=== PATIENT | female | born 1950 | race Caucasian/White ===

== ENCOUNTER 2018-06-11 19:59 | Inpatient (IN) ==
[2018-06-11] MEDS ORDERED: Fluticasone Propionate Nasal 50 MCG/SPRAY BOTTLE NS PRN (21:19)
[2018-06-11] MEDS ORDERED: Acetaminophen 325 MG TABLET PO PRN (21:23)
[2018-06-11] MEDS ORDERED: Mag Hydrox/Al Hydrox/Simeth 30 ML UDC PO PRN (21:24)
[2018-06-11] MEDS: *HR* OxyCODONE Immed Rel 5 MG TABLET PO PRN (23:43)
[2018-06-12] MEDS: *HR* OxyCODONE Immed Rel 5 MG TABLET PO PRN ×3 (04:45→18:20)
[2018-06-12 05:53] LABS: Basophils % 0.7 %; Eosinophils # 0.3 K/mcL (0.0-0.6); Eosinophils % 4.6 %; Hematocrit 30.3 % (35.3-44.9); Hemoglobin 10.2 g/dL (11.5-15.4); Immature Granulocytes % 0.3 % (0-4); Lymphocytes # 1.1 K/mcL (0.6-4.6); Lymphocytes % 18.5 %; Mean Corpuscular HGB Conc 33.7 g/dL (31.6-35.5); Mean Corpuscular Volume 89.1 fL (83.0-100.0); Mean Platelet Volume 12.3 fL (9.4-12.4); Monocytes # 0.6 K/mcL (0.0-1.3); Monocytes % 10.4 %; Platelet Count 162 K/mcL (140-400); Red Cell Distribution Width 13.1 % (11.5-14.5); Segmented Neutrophils % 65.5 %
[2018-06-12 05:57] LABS: INR 1.2; Prothrombin Time 13.5 Seconds (9.4-12.1)
[2018-06-12 06:00] LABS: Activated Partial Thrombo Time 28.3 Seconds (26.0-36.0)
[2018-06-12 06:08] LABS: BUN/Creatinine Ratio 15 (6-26); Blood Urea Nitrogen 9 mg/dL (8-23); Calcium 8.4 mg/dL (8.6-10.3); Carbon Dioxide 27 mEq/L (23-29); Chloride 100 mEq/L (98-107); Glucose 110 mg/dL (70-105); Osmolality,Calculated 277 (280-300); Potassium 3.5 mEq/L (3.5-5.1); Sodium 134 mEq/L (136-145); eGFR For Non-African Americans > 60 (> 60)
[2018-06-12] MEDS: Cyanocobalamin (B-12) 1,000 MCG TABLET PO SCH (09:53)
[2018-06-12] MEDS: Aspirin Enteric Coated 325 MG Tablet PO SCH ×2 (09:54→20:54)
--- NOTE | 2018-06-12 11:44 | Internal Med History&Physical ---
Addendum entered and electronically signed by Julian Myers MD 06/12/18 13:21: I have personally performed a face to face evaluation on this patient. I have r eviewed and agree with the care plan. History and Exam by me shows: Patient is without complaint. Therapy notes that she is doing very well. She has not had a bowel movement since surgery and as this is now 5 days, I suggested that she use a laxative as needed. We reviewed past medical history, surgeries include cataracts, right carpal tunnel, right wrist release (de Quervain's?), Right shoulder spur removal, right knee arthroscopy, laparoscopic cholecystectomy, VIDAL with removal of all of her ovaries except one quarter because of scar tissue,and of course her knee replacement. Medications were reviewed. She has no drug allergies. 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 Her was a moth proofer and later a entry level truck driver who about 9 years ago. She has never been a smoker or drinker and uses no street drugs. She lives with her mother but on a part-time basis. She is planning not to work for at least 3 months. Patient has no complaint of chest discomfort, dyspnea, orthopnea, breathing problems, palpitations, nausea or vomiting, constipation or diarrhea, other changes in bowel habits, heartburn, difficulty with urination, kidney problems or kidney stones, fevers chills or sweats, rash or itching, seizures, headache or lightheadedness, heat or cold intolerance, blood problems or anemia, or other new complaints, except as mentioned above. Review of systems is otherwise negative. Examination: (Except as mentioned above): General: In no apparent distress, alert and oriented 3. Head: Atraumatic and normocephalic. Eyes: Extraocular muscles are intact, pupils equal round and reactive to light and accommodation. Sclerae anicteric. Ears: External ears are normal to inspection and hearing is grossly normal. Nose: Patent without lesion noted. Mouth: No intraoral lesions seen. Dentition is unremarkable. Neck: Supple with trachea midline. There is no thyromegaly or adenopathy and carotids are 2+ without bruit heard. Respiratory: No use of accessory muscles. Lungs are clear throughout. Normal airflow. Cardiovascular: Regular rate and rhythm without murmur appreciated. Abdomen: Bowel sounds are normal. No hepatosplenomegaly masses or tenderness. Obese and therefore difficult to palpate deeply. Extremities: No cyanosis or clubbing but right lower extremity is edematous, consistent with postoperative situation. Her right knee is wrapped and is dry and intact. Neurological: A and O 3. Cranial nerves II through XII are intact. No focal deficits and no abnormal movements or postures. Skin: Warm and non-diaphoretic with no lesions noted. Breasts, pelvic and rectal: Not examined. We will plan therapies but she is already walking over 75 feet twice a day. Because of this, we will keep her on her surgeons DVT plan of aspirin twice a day, for DVT prophylaxis. Original Note: Date of Encounter: 06/12/18 Time of Encounter: 11:41 Assessment and Plan (1) Status post total right knee replacement Current visit: Yes Status: Acute PT and OT to eval and treat. Will follow progress. Pain controlled with o xycodone. Hemoglobin stable at 10.2. Follow up with Dr. Light as scheduled. Internal Medicine - H&P: HPI Admitted From: Hospital to Hospital Transfer Plans for Post Hospital Care: Home History of present illness: Ms. Ashby is a 67 year old female transferred here from [facility] status post right total knee replacement for PT and OT. Surgery was performed by Dr. Light on . Patient states pain is controlled with oxycodone. Participating well with therapy. Ambulating with Walker. Absent home alone. Last bowel movement was 3 days ago. Patient states this can be normal for her. Denies any discomfort. Denies fever, chills, nausea, vomiting or diarrhea. Maintaining appetite and hydration. 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 restless legs Psychiatric history: anxiety - Past Surgical History Surgical History: cataract, other Additional surgical history: right shoulder. hysterectomy. right knee. ctr - Social History Smoking Status: Never smoker Smokeless Tobacco Status: No Alcohol use: none Drug use: none - Family History Mother Adopted: No Age: 95 Living Status: Still Living Hx Family Cardiac Disorders: Yes (HTN) Hx Family Musculoskeletal Disorders: Yes (arthritis) Internal Medicine - H&P: Meds Cyanocobalamin (Vitamin B-12) [Vitamin B-12] 500 mcg SL DAILY 08/18/16 [History] Fluticasone Propionate Nasal [Flonase] 2 spr NS DAILY PRN 08/18/16 [History] [place]-3/Dha/Epa/Fish Oil [Fish Oil 1,000 mg Softgel] 1 each PO 2XW 08/18/16 [History] Aspirin Enteric Coated [Aspirin EC] 325 mg PO BID #20 tablet. 06/08/18 [Rx] OxyCODONE Immed Rel [Roxicodone 5 MG] 5 mg PO Q6HR PRN 5 Days #20 tablet 06/08/18 [Rx] Allergy/AdvReac Type Severity Reaction Status Date / Time No Known Allergies Allergy Verified 06/09/18 12:09 All Systems PM: A 10-system review of systems was performed and is negative for pertinent findings except as documented above in the HPI. - Constitutional Constitutional: no chills, no fever(s), no night sweats - EENT Eyes: no change in vision, no discharge, no pain, no photophobia Ears: no ear discharge, no ear pain, no tinnitus Nose, mouth and throat: no dysphagia, no nasal discharge, no neck pain, no sore throat - Cardiovascular Cardiovascular ROS IM: no chest pain, no diaphoresis, no dyspnea, no lightheadedness, no palpitations, no syncope - Respiratory Respiratory: no cough, no dyspnea, no wheezing, no excessive phlegm production - Gastrointestinal Gastrointestinal: no abdominal pain, no diarrhea, no hematemesis, no hematochezia, no melena, no nausea, no vomiting - Genitourinary Genitourinary: no change in urinary stream, no dysuria, no flank pain, no hematuria - Musculoskeletal Musculoskeletal ROS IM: no numbness, no tingling - Integumentary Integumentary IM: no rash, no unusual bruising - Neurological Neurological ROS: no confusion, no convulsions, no focal weakness, no numbness, no tingling, no tremor(s) - Hematologic/Lymphatic Hematologic/Lymphatic: no easy bruising - Constitutional Vitals: Temp Pulse Resp BP Pulse Ox 98.8 F 88 15 118/68 93 06/12/18 07:56 06/12/18 07:56 06/12/18 07:56 06/12/18 07:56 06/12/18 07:56 General appearance: Present: cooperative, A&O X 3, no acute distress, answers questions appropriately - Head Head exam: Present: atraumatic, normocephalic - Eye Eye exam: Present: PERRL, conjuntiva pink, sclera anicteric Pupils: Present: PERRL - Neck Neck exam general surgery: Present: supple, trachea midline. Absent: lymphad enopathy - Respiratory Respiratory exam: Present: CTAB. Absent: accessory muscle use, rales, rhonchi, wheezes - Cardiovascular Cardiovascular exam: Present: RRR, +S1, +S2. Absent: diastolic murmur, gallop, rubs, systolic murmur - GI/Abdominal GI/Abdominal exam: Present: normal bowel sounds, soft, no peritoneal signs. Absent: distended, tenderness - Extremities Exam Extremities exam: Present: warm, radial pulses palpable and symmetrical. Absent: calf tenderness, cyanotic, pedal edema - Incison Comments: right knee incision, drsg dry and intact. no drainage. surrounding edema present. - Neurological Exam Neurological exam: Present: CN II-XII intact, oriented X3, no focal deficits. Absent: pronater drift, facial droop, speech deficit - Skin Skin exam: Present: dry, intact Internal Med - H&P Results - Labs CBC & Chem 7: 06/12/18 05:40 06/12/18 05:40 Labs: Short CBC 06/12/18 Range/Units 05:40 WBC 6.2 (4.3-11.1) K/mcL Hgb 10.2 L (11.5-15.4) g/dL Hct 30.3 L (35.3-44.9) % Plt Count 162 (140-400) K/mcL Neutrophils # 4.0 (1.6-8.9) K/mcL BMP 06/12/18 05:40 Sodium 134 L Potassium 3.5 Chloride 100 Carbon Dioxide 27 BUN 9 Creatinine 0.61 Glucose 110 H Calcium 8.4 L
[2018-06-13] MEDS: *HR* OxyCODONE Immed Rel 5 MG TABLET PO PRN ×4 (00:45→21:01)
[2018-06-13] MEDS: Aspirin Enteric Coated 325 MG Tablet PO SCH ×2 (09:30→21:01)
[2018-06-13] MEDS: Cyanocobalamin (B-12) 1,000 MCG TABLET PO SCH (09:31)
--- NOTE | 2018-06-13 13:55 | Internal Med Progress Note ---
Addendum entered and electronically signed by Julian Myers MD 06/14/18 11:44: I have personally performed a face to face evaluation on this patient. I have r eviewed and agree with the care plan. History and Exam by me shows: The patient was evaluated by me yesterday but the note was not complete. This documentation is being completed today for that reason. Discussed care with other providers and/or nursing. Patient has no complaint of chest discomfort, dyspnea, orthopnea, palpitations, nausea or vomiting, constipation or diarrhea, other changes in bowel habits, difficulty with urination, rash or itching, or other new complaints, except as mentioned above. Review of systems is otherwise negative. Examination: (Except as mentioned above): General: In no apparent distress. Alert and oriented 3. Nondiaphoretic. Head: Atraumatic and normocephalic. Respiratory: No use of accessory muscles. Lungs are clear throughout. Normal airflow. Cardiovascular: Regular rate and rhythm without murmur appreciated. Abdomen: Bowel sounds are normal. No hepatosplenomegaly mass or tenderness appreciated. Obese and therefore difficult to palpate deeply. Extremities: No cyanosis clubbing or change in edema. Skin: Warm and non-diaphoretic with no new lesions noted. Original Note: Date of Encounter: 06/13/18 Time of Encounter: 13:53 - Assessment and plan (1) Status post total right knee replacement Current Visit: Yes Status: Acute Assessment and plan: Participating well with therapy. Continue PT and OT. Oxycodone controlling pain. Follow up with ortho as scheduled. - Time Spent With Patient less than 15 minutes - Subjective Interval history: Participating well with therapy. Ambulating in hallway with Walker. Maintaining appetite and hydration. States pain is controlled with oxycodone. Denies fever, chills, nausea vomiting or diarrhea. - Constitutional Vitals: Temp Pulse Resp BP Pulse Ox 98.3 F 88 18 115/69 96 06/13/18 06:58 06/13/18 06:58 06/13/18 06:58 06/13/18 06:58 06/13/18 06:58 General appearance: Present: cooperative, A&O X 3, no acute distress, answers qu estions appropriately - Head Head exam: Present: atraumatic, normocephalic - Eye Eye exam: Present: PERRL, conjuntiva pink, sclera anicteric Pupils: Present: PERRL - Neck Neck exam general surgery: Present: supple, trachea midline. Absent: lymphadenopathy - Respiratory Respiratory exam: Present: CTAB. Absent: accessory muscle use, rales, rhonchi, wheezes - Cardiovascular Cardiovascular exam: Present: RRR, +S1, +S2. Absent: diastolic murmur, gallop, rubs, systolic murmur - GI/Abdominal GI/Abdominal exam: Present: normal bowel sounds, soft, no peritoneal signs. Absent: distended, tenderness - Extremities Exam Extremities exam: Present: warm, radial pulses palpable and symmetrical. Absent: calf tenderness, cyanotic, pedal edema - Incison Comments: Right knee incision dressing dry and intact. No drainage. Surrounding edema - Neurological Exam Neurological exam: Present: CN II-XII intact, oriented X3, no focal deficits. Absent: pronater drift, facial droop, speech deficit - Skin Skin exam: Present: dry, intact Internal Medicine: Result - Labs CBC & Chem 7: 06/12/18 05:40 06/12/18 05:40 - ABG Interpretation ABG results: PT/INR, D-dimer PT 13.5 Seconds (9.4-12.1) H 06/12/18 05:40 Consult Discharge Plan - Plan Referrals: NONE,PCP [Primary Care Provider] -
[2018-06-14] MEDS: *HR* OxyCODONE Immed Rel 5 MG TABLET PO PRN ×2 (01:02→08:52)
[2018-06-14 06:44] VITALS: BP 126/76
[2018-06-14] MEDS: Cyanocobalamin (B-12) 1,000 MCG TABLET PO SCH (08:51)
[2018-06-14] MEDS: Aspirin Enteric Coated 325 MG Tablet PO SCH (08:52)
[2018-06-14] MEDS ORDERED: (Omega-3/Dha/Epa/Fish Oil [Fish Oil 1,000 Mg Softgel]) PO SCH (09:00)
--- NOTE | 2018-06-14 10:12 | Discharge Summary ---
Addendum entered and electronically signed by Julian Myers MD 06/14/18 11:44: I have personally performed a face to face evaluation on this patient. I have r eviewed and agree with the care plan. History and Exam by me shows: Patient states that she moved her bowels and has no other complaints. Questions have been answered. She feels pleased to be going home and is to have an orthopedic follow-up, today. Discussed care with other providers and/or nursing. Patient has no complaint of chest discomfort, dyspnea, orthopnea, palpitations, nausea or vomiting, constipation or diarrhea, other changes in bowel habits, difficulty with urination, rash or itching, or other new complaints, except as mentioned above. Review of systems is otherwise negative. Examination: (Except as mentioned above): General: In no apparent distress. Alert and oriented 3. Nondiaphoretic. Head: Atraumatic and normocephalic. Respiratory: No use of accessory muscles. Lungs are clear throughout. Normal airflow. Cardiovascular: Regular rate and rhythm without murmur appreciated. Abdomen: Bowel sounds are normal. No hepatosplenomegaly mass or tenderness appr eciated. Obese and therefore difficult to palpate deeply. Patient is examined upright in chair and this also limits exam. Extremities: No cyanosis clubbing or edema. Skin: Warm and non-diaphoretic with no new lesions noted. Original Note: Date of Encounter: 06/14/18 Time of Encounter: 10:08 - Discharge Diagnosis (1) Status post total right knee replacement Priority: Primary Status: Acute Comments: Patient had a right TKR at an [facility] by Dr. Light. Postoperative recovery was uneventful. Patient was transferred to this facility for further rehabilitation due to weakness postoperatively. Right knee surgical incision has remained dry and intact with no ecchymosis or erythema noted. Slight swelling to right knee. Patient has used continuous icing. Progressed well with physical therapy and will continue physical therapy as an outpatient here at this facility Hospital course: Ms. Ashby is a 67 year old female, transferred here from [facility] status post right total knee replacement for PT and OT. Surgery was performed by Dr. Light on . Patient states pain has been well controlled with oxycodone. Patient has been participating in progressing well with physical therapy. Surgical incision on the right knee appears healthy and intact with no erythema or ecchymosis. Slight swelling to right knee but patient has been using continuous icing. Patient will continue with physical therapy as an outpatient here at [facility]. Patient is to follow up with : Today in the office. Discharge discussed with: patient Time spent discussing smoking cessation with patient: 3 to 10 minutes - Time Spent with Patient Total time spent providing and/or coordinating discharge services: Less than 30 minutes - Discharge Medications Home Medications: Cyanocobalamin (Vitamin B-12) [Vitamin B-12] 500 mcg SL DAILY 08/18/16 [History] Fluticasone Propionate Nasal [Flonase] 2 spr NS DAILY PRN 08/18/16 [History] [place]-3/Dha/Epa/Fish Oil [Fish Oil 1,000 mg Softgel] 1 each PO 2XW 08/18/16 [History] Aspirin Enteric Coated [Aspirin EC] 325 mg PO BID #20 tablet. 06/08/18 [Rx] Allergies/Adverse Reactions: Allergy/AdvReac Type Severity Reaction Status Date / Time No Known Allergies Allergy Verified 06/09/18 12:09 Date of admission: 06/11/18 19:59 Primary care physician: PCP NONE Consults: 06/11/18 21:10 Consult to Occupational Therapy [CONS] Routine Comment: Evaluate, develop and implement POC Reason for Consult: eval and treat Does patient have active BEDREST order?: No Is patient medically & hemodynamically stable?: Yes Patient assessed for mobility or mobilized this visit?: No Consult to Physical Therapy [CONS] Routine Comment: Evaluate, develop and implement POC Reason for Consult: eval and treat Does patient have active BEDREST order?: No Is patient medically & hemodynamically stable?: Yes Patient assessed for mobility or mobilized this visit?: No Consult to Recreational Therapy [CONS] Routine Comment: Evaluate, develop and implement POC Consult to Shafting Worker [CONS] Routine Reason for SW Consult: discharge planning 06/12/18 00:20 Consult to Physical Medicine/Rehab [CONS] Routine Reason for Consult: Please evaluate and manage therapies' guidelines and recommend pathway to reconditioning. Call Completed: No Discharging clinician: Julian Myers - Constitutional Vitals: Temp Pulse Resp BP Pulse Ox 98.2 F 85 16 126/76 97 06/14/18 06:40 06/14/18 06:40 06/14/18 06:40 06/14/18 06:40 06/14/18 06:40 General appearance: Present: cooperative, A&O X 3, no acute distress, answers questions appropriately - Head Head exam: Present: atraumatic, normocephalic - Eye Eye exam: Present: PERRL, conjuntiva pink, sclera anicteric Pupils: Present: PERRL - Neck Neck exam general surgery: Present: supple, trachea midline. Absent: lymphadenopathy - Respiratory Respiratory exam: Present: CTAB. Absent: accessory muscle use, rales, rhonchi, wheezes - Cardiovascular Cardiovascular exam: Present: RRR, +S1, +S2. Absent: diastolic murmur, gallop, rubs, systolic murmur - GI/Abdominal GI/Abdominal exam: Present: normal bowel sounds, soft, no peritoneal signs. Absent: distended, tenderness - Extremities Exam Extremities exam: Present: warm, radial pulses palpable and symmetrical. Absent: calf tenderness, cyanotic, pedal edema Additional comments: Right knee with midline incision appears dry and intact with dressing intact. No erythema or ecchymosis noted. Slight swelling to right knee. - Neurological Exam Neurological exam: Present: CN II-XII intact, oriented X3, no focal deficits. Absent: pronater drift, facial droop, speech deficit - Skin Skin exam: Present: dry, intact - Patient Status Disposition: Home, Self-Care Condition: Good Functional capacity at discharge: uses cane/walker Overall status at discharge: patient is progressing back to baseline - Discharge Instructions Follow Up With: Lula Guadarrama PAC [Physician Air Traffic Coordinator] - 06/22/18 11:15 am (POW#2 R TKR ROBOTIC 06/08/18) Filiberto Light MD [Partnered Physician] - 07/04/18 4:30 pm (POW#4 R TKR ROBOTIC 06/08/18) Vahid Ashby MD [Partnered Physician] - (PCP - patient will make f/u appt with Dr. Ashby within one week of discharge from rehabilitation therapy. Patient also has an annual wellness visit scheduled with Dr Ashby on 01/24/19 @ 10am) - Diet and Activity Activity: as per physical therapy, increase activity as tolerated Diet: regular diet
--- NOTE | 2018-06-15 14:53 | Physician Discharge Referral ---
Home Health/Hosp Referral Info Transfer to: Home Health Provider in Charge Post Discharge: PCP - Diagnosis (1) Status post total right knee replacement Priority: Primary Status: Acute - Respiratory Orders Smoking Cessation: Smoking cessation has been advised. For more information, call the [place] Tobacco Quit Line at 3-624-RXII-NOW. - Diet/Nutrition Diet/Nutrition Orders: Regular, No Added Salt (JORGE A) - Activity Activity Orders: Up ad annita, Walker - Services Needed Following services are medically necessary services: Nursing, Physical Therapy - Transfer Medications Home Medications: Cyanocobalamin (Vitamin B-12) [Vitamin B-12] 500 mcg SL DAILY 08/18/16 [History] Fluticasone Propionate Nasal [Flonase] 2 spr NS DAILY PRN 08/18/16 [History] [place]-3/Dha/Epa/Fish Oil [Fish Oil 1,000 mg Softgel] 1 each PO 2XW 08/18/16 [History] Aspirin Enteric Coated [Aspirin EC] 325 mg PO BID #20 tablet. 06/08/18 [Rx] Allergies/Adverse Reactions: Allergy/AdvReac Type Severity Reaction Status Date / Time No Known Allergies Allergy Verified 06/09/18 12:09 Certification: Further, I certify that my clinical findings support that this patient is homebound (i.e. absences from home require considerable and taxing effort and are for medical reasons or restorationist services or infrequently or short duration when for other reasons) because: Homebound Reason: Leaving home requires considerable and taxing effort due to condition Attestation: My signature below is to certify that this patient is under my care and that I, or nurse practitioner, or a physician's hair assistant working with me, has a [id number] encounter with this patient.
== END 2018-06-14 10:34 | disposition home or self-care (01) | DRG 561 ==
LOC: INPGRE 19:59